=== PATIENT | male | born 1955 ===

== ENCOUNTER → 2021-08-09 | Outpatient (CLI) | payer BC, OTHER | LOC: COL.VAS 11:03 → EDBD 12:30 → COL.VAS 12:30 | DX: M47.816 Spondylosis without myelopathy or radiculopathy, lumbar region (principal); M47.817 Spondylosis without myelopathy or radiculopathy, lumbosacral region; M51.26 Other intervertebral disc displacement, lumbar region; M51.27 Other intervertebral disc displacement, lumbosacral region; M48.061 Spinal stenosis, lumbar region without neurogenic claudication; M48.07 Spinal stenosis, lumbosacral region; M21.372 Foot drop, left foot; M21.371 Foot drop, right foot | CPT/HCPCS: A9575 ==